=== PATIENT | female | born 1970 | race Caucasian/White ===

== ENCOUNTER 2020-03-24 07:43 | Day surgery (SDC) | payer OTHER ==
[~2020-03-24] VITALS: Ht 160 cm; Wt 68.0 kg
[~2020-03-24 07:43] MED LIST: FLUOXETINE HCL40 MG PO; NAPROXEN SODIU550 MG PO; VITAMIN D350 MC1 PO
--- NOTE | 2020-03-24 10:58 | NUR ---
03/24/20 1058 Erika Oreilly 1049 PT ARRIVED IN PACU SLEEPY WITH NO C/O'S.
[2020-03-24] MEDS ORDERED: IBUPROFEN600 MG PO (11:08)
[2020-03-24] MEDS ORDERED: TYLENOL EXTRA500 MG PO (11:09)
[2020-03-24] MEDS ORDERED: OXYCODON-ACETA1 EAC2 PO (11:09)
--- NOTE | 2020-03-24 11:28 | NUR ---
ICED WATER AND CRACKERS GIVEN. CALL LIGHT IS WITHIN REACH.
--- NOTE | 2020-03-24 13:09 | NUR ---
RUQ INCISION IS OOZING BRIGHT RED BLOODY DRAINAGE. IN CLEANING UP THE DRAINAGE, FIRMNESS IS FELT BENEATH THE INCISION. OOZING APPEARS TO HAVE STOPPED. DR COLIN INFORMED AND HE PRESENTS TO THE ROOM AND NO NEW ORDERS ARE RECEIVED. INCISION IS COVERED WITH GAUZE AND SECURED WITH TAPE. PATIENT'S RIDE IS CALLED AND SHE IS GETTING DRESSED.
--- NOTE | 2020-03-24 13:27 | NUR ---
LE 1310: DISCHARGE INSTRUCTIONS ARE GIVEN AND PATIENT VERBALIZES UNDERSTANDING. PATIENT IS GETTING DRESSED AND SHE TRANSFERS HERSELF TO WHEELCHAIR AND THEN TO PERSONAL VEHICLE AND TOLERATES THAT WELL.
--- NOTE | 2020-03-25 10:50 | OR ---
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 PROCEDURE: 1. Laparoscopic cholecystectomy with intraoperative cholangiogram. 2. Surgeon-directed fluoroscopy. ANESTHESIA: General endotracheal, Cristal Calle CRNA and local 10 mL of 0.25% Marcaine with epinephrine. INDICATION: This 49-year-old white woman is a patient of Dr. Cristal Cueva and has had chronic recurrent symptoms of biliary colic including right subcostal and subscapular pain particularly following food. Her evaluations include a gallbladder ultrasound on February 28, 2020, which showed no evidence of gallstones, but did show adenomyosis of the gallbladder mucosa consistent with chronic inflammation. She has family history of biliary disease in her son, who underwent cholecystectomy at age 20 as well as her grandmother. She is admitted at this time to undergo cholecystectomy on the high presumption she has acalculous cholecystitis based on her clinical symptoms and ultrasound findings. The risks of bleeding, infection, bile duct injury, need for open procedure and other indicated procedures and other unforeseen complications was all reviewed in detail. She understands and wished to proceed. FINDINGS: The gallbladder was chronically inflamed. The liver was normal. Cholangiogram was normal. The gallbladder once opened showed chronic inflammatory change of the mucosa, but no sign of stones or neoplasm. There were no other findings of concern. There were adhesions to the undersurface of the gallbladder. DESCRIPTION OF PROCEDURE: The patient was brought to the operating room and given a general endotracheal anesthetic. Preoperative antibiotic Ancef was given. Sequential compression device Electronically Signed By: CRISTAL COLIN MD 03/25/20 1050 PATIENT NAME: MARY GAMBOA OPERATIVE REPORT DATE OF : 72 REPORT #: [id number] PHYSICIAN: CRISTAL COLIN MD PCP: TATIANA CUEVA MD REPORT IS CONFIDENTIAL AND NOT TO BE RELEASED WITHOUT AUTHORIZATION [facility] [address], [place] [address] Signed stockings were used and heparin subcutaneously administered. The abdomen was prepared with a chlorhexidine solution and draped sterilely. An infraumbilical incision was made and using an open Nick cannula technique, pneumoperitoneum was achieved to a level of 14 mmHg of carbon dioxide gas. Intraabdominal inspection showed no sign of ascites or carcinomatosis. The liver appeared normal. There were filmy adhesions in the right upper abdomen noted and some to the gallbladder itself. Three additional trocars were placed in usual configuration in the subxiphoid, right midclavicular, and right anterior axillary line. The gallbladder was grasped and elevated cephalad and adhesions encumbering the gallbladder itself were taken down with sharp dissection and minimal amounts of cautery. Ultimately, the gallbladder could be elevated cephalad more fully. The gallbladder was retracted laterally and using blunt and electrocautery dissection, the triangle of Calot was dissected free. Clips were applied to the cystic arterial branches and a clip applied across the gallbladder cystic duct junction. A transverse choledochotomy was made in the cystic duct. Retrograde milking of the duct showed clear bile. Using the Marroquin type cholangiocatheter, intraoperative cholangiography was undertaken showing free flow of contrast in the biliary tree with prompt emptying into the duodenum. There was no sign of filling defect or other abnormality. The catheter was removed and the cystic duct was triply clipped and divided. The gallbladder was then dissected free in a retrograde fashion after dividing the cystic artery. The gallbladder was extracted through the infraumbilical port site without problem, opened on the back table and found to have adenomyosis of the gallbladder mucosa. No sign of stone or neoplasm. Irrigation was undertaken in subhepatic space. There was no sign of bile leak or bleeding. Dissection of filmy adhesions from the duodenum and the gallbladder were noted and on the basis of that extensive dissection, insufflation of Kristine powdered procoagulant material was undertaken without problem. Excess irrigation of fluid was suctioned free and the trocars were then removed under direct visualization showing no sign of bleeding. The infraumbilical fascial incision was reapproximated with interrupted 0 Vicryl suture as well as a running 0 PDS suture. A 10 mL of 0.25% Marcaine with epinephrine was injected locally. The skin was closed with interrupted 2-0 Vicryl and Steri-Strips were applied. The patient tolerated procedure well, was extubated without problem and taken to the recovery room in good condition having suffered no complications. Sponge, needle, and counts reported as correct x3. MD BENJAMIN Wood/ANICETO Electronically Signed By: CRISTAL COLIN MD 03/25/20 1050 PATIENT NAME: MARY GAMBOA OPERATIVE REPORT DATE OF : 72 REPORT #: [id number] PHYSICIAN: CRISTAL COLIN MD PCP: TATIANA CUEVA MD REPORT IS CONFIDENTIAL AND NOT TO BE RELEASED WITHOUT AUTHORIZATION [facility] [address] [place] [address] Signed /[id number] cc: Tatiana Cueva MD Copies: TATIANA CUEVA MD ~ Electronically Signed By: CRISTAL COLIN MD 03/25/20 1050 PATIENT NAME: MARY GAMBOA OPERATIVE REPORT DATE OF : 72 REPORT #: [id number] PHYSICIAN: CRISTAL COLIN MD PCP: TATIANA CUEVA MD REPORT IS CONFIDENTIAL AND NOT TO BE RELEASED WITHOUT AUTHORIZATION
--- NOTE | 2020-03-25 11:04 | PATH ---
[facility] [address] [place], [place] [address] Signed SPECIMEN(S): A GALLBLADDER SPECIMEN SOURCE: A. GALLBLADDER CLINICAL HISTORY: Biliary colic. FINAL PATHOLOGIC DIAGNOSIS: Gallbladder, cholecystectomy: - Chronic cholecystitis. - Adenomyosis. - Negative for dysplasia or malignancy. NAL:cml:C2NR MICROSCOPIC EXAMINATION: Histologic sections of all submitted blocks are examined by light microscopy. These findings, together with the gross examination, support the pathologic diagnosis. GROSS DESCRIPTION: The specimen, labeled "KM, A.," and designated on the requisition "gallbladder," is received in formalin and consists of Specimen: Previously opened gallbladder. Dimensions: 5.7 x 2.5 x 1.4 cm. Serosa: Smooth and violaceous with attached adipose tissue. Cystic Duct: Unobstructed. Calculi: Absent. Mucosa: Pale green and velvety. Wall thickness: Up to 0.7 cm. Lymph node: No pericystic lymph nodes are grossly identified. Additional: A 1.2 x 1.0 x 0.4 cm, subserosal, multilocular, cystic structure measuring 4.5 cm to the cystic duct, containing a 0.3 x 0.3 x 0.1 clear glass-like fragment. Electric[employer] Hel[employer] sections are submitted in cassette (A1). AT (under the direct supervision of a pathologist) The Gross Description was prepared using a voice recognition system. The report was reviewed for accuracy; however, sound-alike word errors, addition and/or deletions may occur. If there is any question about this report, please contact Client Services. PATIENT NAME: MARY GAMBOA PATHOLOGY DATE OF : 72 REPORT #: [id number] PHYSICIAN: LILLIE VELEZ PCP: TATIANA DONG MD REPORT IS CONFIDENTIAL AND NOT TO BE RELEASED WITHOUT AUTHORIZATION [facility] [address] [place], [place] [address] Signed PERFORMING LABORATORY: The technical component [place] [id number] (Medical Transcriber: Claire Ochoa MD; CLIA# [id number]). Professional interpretation was performed by [facility], [address] [address] (CLIA# [id number]). Diagnostician: Jena Brice MD Pathologist Electronically Signed 03/25/2020 Copies: ~ PATIENT NAME: MARY GAMBOA PATHOLOGY DATE OF : 72 REPORT #: [id number] PHYSICIAN: LILLIE VELEZ PCP: TATIANA DONG MD REPORT IS CONFIDENTIAL AND NOT TO BE RELEASED WITHOUT AUTHORIZATION
== END 2020-03-24 13:20 | disposition home or self-care (01) ==
LOC: DS 07:43
PROVIDERS: Surgery
PROC: BF13YZZ Fluoroscopy of Gallbladder and Bile Ducts using Other Contrast (ICD-10-PCS; 2020-03-24)
PROC: 0FT44ZZ Resection of Gallbladder, Percutaneous Endoscopic Approach (ICD-10-PCS; principal; 2020-03-24 07:45)
DX: K81.1 Chronic cholecystitis (principal); N80.0 Endometriosis of uterus; F32.9 Major depressive disorder, single episode, unspecified; F17.210 Nicotine dependence, cigarettes, uncomplicated; Z79.899 Other long term (current) drug therapy
CPT/HCPCS: 00790; 74300; J0330; J0690; J1100; J1644; J1885; J2250; J2405; J2704; J2765; J3010; J7121; Q9967